=== PATIENT | male | born 1970 | race Caucasian/White ===

== ENCOUNTER 2019-12-24 08:32 | Emergency (ER) | payer OTHER, SELFPAY ==
--- NOTE | 2019-12-24 08:44 | ED.GENADULT ---
HPI - General Adult General Chief complaint: Unspecified Stated complaint: light headed,swelling in feet Time Seen by Provider: 12/24/19 08:44 Source: patient Mode of arrival: ambulatory Limitations: no limitations History of Present Illness HPI narrative: 49-year-old male patient presents to the [facility] with complaints of bilateral feet swelling and feeling lightheaded over the weekend. Patient states he is feeling better today in regards to his lightheadedness and states he currently does not have any headache or lightheadedness at this time. Denies any chest pain or shortness of breath. Patient states he is concerned about the swelling to his bilateral feet because he does have stage III kidney disease and was hospitalized in October for acute kidney failure. Patient does have type 2 diabetes but states he does not have a meter at home and does not check his sugars on a daily basis. Patient denies any changes in his urine output. Patient states that his primary doctor did increase his Lantus and he did start taking the increased dose over the weekend so he is concerned that this could be possibly what is causing his symptoms. Related Data Home Medications Medication Instructions Recorded Confirmed alprazolam [Xanax] 0.5 mg PO BID 12/24/19 12/24/19 amlodipine [Norvasc] 10 mg PO DAILY 12/24/19 12/24/19 desvenlafaxine succinate 50 mg PO DAILY 12/24/19 12/24/19 modafinil [Provigil] 200 mg PO QAM 12/24/19 12/24/19 propranolol 40 mg PO TID 12/24/19 12/24/19 topiramate [Topamax] 50 mg PO HS 12/24/19 12/24/19 tramadol 50 mg PO QID 12/24/19 12/24/19 Allergies Allergy/AdvReac Type Severity Reaction Status Date / Time No Known Allergies Allergy Verified 12/24/19 08:59 Review of Systems Review of Systems: Narrative: CONSTITUTIONAL: Denies fever, chills, or sweats. EYES: Denies visual changes, redness, or discharge. ENT: Denies rhinorrhea, congestion, sore throat, or otalgia. CARDIOVASCULAR: Denies chest pain, palpitations, or edema. RESPIRATORY: Denies cough or dyspnea. GASTROINTESTINAL: Denies abdominal pain, nausea, vomiting, or diarrhea. GENITOURINARY: Denies dysuria or hematuria. SKIN: Denies rash or itching. MUSCULOSKELETAL: Denies back pain, joint pain, or myalgia. Positive swelling to bilateral lower extremities NEUROLOGIC: Denies headache, numbness, or weakness. PSYCHIATRIC: Denies anxiety or depression. [facility] Past Medical History Medical History (Updated 12/24/19 @ 09:07 by VINCENZO Mackey) Anxiety Depression Hypercholesterolemia Hypertension Irritable bowel syndrome PTSD (post-traumatic stress disorder) Sleep apnea Type 2 diabetes mellitus Comments At the time of my signature I agree with nursing past medical history, surgical, social, and family history. There is no relevant family history pertinent to the presenting complaint. Exam Narrative: Exam Narrative: GENERAL: Well-appearing, well-nourished, and in no acute distress. HEAD: Normocephalic, atraumatic. EYES: PERRLA and EOMI. ENT: Nares clear, no rhinorrhea or epistaxis. Mucous membranes moist. NECK: Supple. No lymphadenopathy CHEST: Clear to auscultation. No respiratory distress. Patient able talk in clear complete sentences. No tripoding noted. HEART: Regular rate and rhythm. No murmur heard. Normal peripheral pulses. ABDOMEN: Soft, nontender, nondistended, normal active bowel sounds. EXTREMITIES: Normal range of motion. Patient does have notable edema noted to bilateral feet approximately 1-2+ pitting edema. SKIN: Warm, dry, no rash. NEURO: No focal deficits. Alert and oriented x3. Course Vital Signs Vital signs: Vital Signs Temperature 36.7 C 12/24/19 08:47 Pulse Rate 75 12/24/19 08:47 Respiratory Rate 18 12/24/19 08:47 Blood Pressure 148/77 H 12/24/19 08:47 Pulse Oximetry 100 12/24/19 08:47 Temperature 36.7 C 12/24/19 08:47 Pulse Rate 75 12/24/19 08:47 Respiratory Rate 18 12/24/19 08:47 Blood Pres
[2019-12-24 08:47] VITALS: BP 148/77; PULSE 75; RESP 18; TEMP 36.7; O2SAT 100
[2019-12-24 10:29] LABS: Glucose Point of Care 114 (65-105)
== END 2019-12-24 09:04 | disposition short-term general hospital (02) ==
PROVIDERS: Emergency Provider Nurse Practitioner Family; PCP Family Medicine
DX: M79.89 Other specified soft tissue disorders (principal); F41.9 Anxiety disorder, unspecified; E78.00 Pure hypercholesterolemia, unspecified; I10 Essential (primary) hypertension; G47.30 Sleep apnea, unspecified; E11.9 Type 2 diabetes mellitus without complications
CPT/HCPCS: 82948; 99202; G0463

== ENCOUNTER 2020-10-11 11:22 | Emergency (ER) | payer OTHER, SELFPAY ==
--- NOTE | ~2020-10-11 | XR_ITS ---
EXAMINATION: XR chest 2V DATE: 10/11/2020 12:09 INDICATION: Shortness of breath. TECHNIQUE: frontal view of the chest was obtained. COMPARISON: None FINDINGS: Groundglass opacities in the right mid to lower lung with more patchy airspace opacities along the el evated right hemidiaphragm. Mild groundglass and patchy airspace opacities in the left lower lung zon e. No pneumothorax or definitive pleural effusion. Borderline heart size accounting for AP technique. Thoracic dextroscoliosis. IMPRESSION: 1. Opacities in the right mid to lower and left lower lung zones which could represent pneumonia, ate lectasis, pulmonary edema or some combination thereof. 2. Elevation the right hemidiaphragm. 3. Borderline heart size. Reviewed, dictated and finalized at location A. IMPRESSION: 1. Opacities in the right mid to lower and left lower lung zones which could re present pneumonia, atelectasis, pulmonary edema or some combination thereof. 2. Elevation the right hemidiaphragm. 3. Borderline heart size.
[2020-10-11 11:22] VITALS: PULSE 74; RESP 28; O2SAT 99
[2020-10-11 11:32] VITALS: BP 142/83; PULSE 74; RESP 28; TEMP 36.5; O2SAT 100
[2020-10-11] MEDS: predniSONE 20 MG TABLET 40 MG PO (11:32)
[2020-10-11] MEDS: IPRATROPIUM BR 0.02% INH SOLN 0.5 MG/2.5 ML VIAL INHALATION (11:33)
[2020-10-11] MEDS: ALBUTEROL SULFATE NEB 2.5 MG/3 ML INH INHALATION (11:33)
--- NOTE | 2020-10-11 11:58 | ED.GENADULT ---
HPI - General Adult General Chief complaint: Shortness of Breath/Dyspnea Stated complaint: sob Source: patient Mode of arrival: ambulatory Limitations: no limitations History of Present Illness HPI narrative: 50 y/o male. PMHx includes HTN, HLD, Obesity. Presents to [facility] today with acute complaints of LEWIS, productive cough, dyspnea, and wheezing for the past 72 hours. He tells me that he has been experiencing clear and yellow phlegm production. No fever, chills. No chest pain, palpitations, edema. No abdominal pain, N/V. Pt denies known ill contacts. He is w/o additional acute c/o illness upon exam. Related Data Home Medications Medication Instructions Recorded Confirmed alprazolam [Xanax] 0.5 mg PO BID 12/24/19 12/24/19 amlodipine [Norvasc] 10 mg PO DAILY 12/24/19 12/24/19 desvenlafaxine succinate 50 mg PO DAILY 12/24/19 12/24/19 modafinil [Provigil] 200 mg PO QAM 12/24/19 12/24/19 propranolol 40 mg PO TID 12/24/19 12/24/19 topiramate [Topamax] 50 mg PO HS 12/24/19 12/24/19 tramadol 50 mg PO QID 12/24/19 12/24/19 Allergies Allergy/AdvReac Type Severity Reaction Status Date / Time No Known Allergies Allergy Verified 12/24/19 08:59 Review of Systems Review of Systems: CONSTITUTIONAL: Denies fever, chills, sweats. EYES: Denies visual changes, redness, discharge. ENT: Positive rhinorrhea & congestion. No sore throat, otalgia. CARDIOVASCULAR: Denies chest pain, palpitations, edema. RESPIRATORY: Positive dyspnea, wheezing, cough GASTROINTESTINAL: Denies abdominal pain, nausea, vomiting, diarrhea. GENITOURINARY: Denies dysuria, hematuria, abnormal discharge SKIN: Denies rash or itching. MUSCULOSKELETAL: Denies acute back pain, joint pain, or myalgia. NEUROLOGIC: Denies numbness, or focal weakness. PSYCHIATRIC: Denies anxiety or depression. All systems reviewed & are unremarkable except as noted in HPI and below PMFSH Past Medical History Medical History Anxiety Depression Hypercholesterolemia Hypertension Irritable bowel syndrome PTSD (post-traumatic stress disorder) Sleep apnea Type 2 diabetes mellitus Social History Social History Gender identity (if verbalized by the patient): Male Exam Narrative: GENERAL: Obese, well-developed adult, in no apparent distress. HEAD: normocephalic, atraumatic. EYES: PERRL. Sclera clear/white. EARS: External ears normal, auditory canals clear and without drainage, TMs normal. NOSE: External nose normal. Positive Rhinorrhea, no obstruction, nares patent. THROAT: Mucous membranes moist, posterior pharynx clear. No exudates. NECK: Neck supple, non-tender without lymphadenopathy, masses or thyromegaly. CARDIOVASCULAR: Regular rate and rhythm without murmurs, gallops, or rubs. RESPIRATORY: With mild upper airway wheezing, expiratory. Upper airway rhonchi, cleared with cough. GASTROINTESTINAL: Abdomen soft, non-tender, nondistended. Bowel sounds are active. No guarding. SKIN: warm, intact with no suspicious lesions or rash, good texture and turgor. NEURO: Alert, active, and age appropriate. No focal neurologic deficits. EXTREMITIES: Negative. Const: General: no acute distress Course Course Emergency Course: -50 y/o male. PMHx HTN. HLD, Obesity. -Presents with acute c/o cough, congestion, intermittent dyspnea, and wheezing. -He presents mildly tachypneic and with mild wheeze, but normotensive and without hypoxemia. -Proceed with steroid, Nebz, Chest imaging, O2 monitoring, and see how he responds. Vital Signs Vital signs: Vital Signs Pulse Rate 74 10/11/20 11:22 Respiratory Rate 28 H 10/11/20 11:22 Pulse Oximetry 99 10/11/20 11:22 Temperature 36.5 C 10/11/20 11:32 Pulse Rate 74 10/11/20 12:05 Respiratory Rate 20 10/11/20 12:05 Blood Pressure 142/83 H 10/11/20 11:32 Pulse Oximetry 100
--- NOTE | 2020-10-11 12:04 | PC.NURSE ---
1156 stated feeling better and breathing easier. resp improved 20.
[2020-10-11 12:05] VITALS: PULSE 74; RESP 20; O2SAT 100
--- NOTE | 2020-10-11 12:05 | PC.NURSE ---
1200 to xray per wc
[2020-10-12 13:59] LABS: SARS-CoV-2 RNA PCR Negative
== END 2020-10-11 12:38 | disposition home or self-care (01) ==
PROVIDERS: Emergency Provider Nurse Practitioner Adult Health; PCP Family Medicine
DX: J18.9 Pneumonia, unspecified organism (principal); Z20.822 Contact with and (suspected) exposure to COVID-19; F41.9 Anxiety disorder, unspecified; E78.00 Pure hypercholesterolemia, unspecified; I10 Essential (primary) hypertension; G47.30 Sleep apnea, unspecified; E11.9 Type 2 diabetes mellitus without complications; E66.9 Obesity, unspecified; Z68.43 Body mass index [BMI] 50.0-59.9, adult; E78.5 Hyperlipidemia, unspecified
CPT/HCPCS: 71046; 87426; 94640; 99213; C9803; G0463; J7512; U0003; U0005